=== PATIENT | female | born 1980 | race Caucasian/White ===

== ENCOUNTER → 2020-02-12 | Outpatient (CLI) ==
[~2020-02-12] MED LIST: AMIT10TA PO; AMIT50TA PO; LEVO-88 PO; MULTCAP PO; PROP20TA72 PO; SUMA25TA3 PO; bcp PO
== END ==
LOC: M LABSMTC 11:26 → EDUNIT# 11:35
PROVIDERS: ATTEND Anesthesiology
DX: Z20.828 Contact with and (suspected) exposure to other viral communicable diseases (principal)
CPT/HCPCS: C9803; U0003

== ENCOUNTER 2020-02-17 13:51 | Day surgery (SDC) | payer OTHER ==
[~2020-02-17] VITALS: Ht 167.6 cm; Wt 77.5 kg
[~2020-02-17 13:51] MED LIST changes: +LR 1,000 ML IV ONE
[2020-02-17] MEDS ORDERED: MIDAZOLAM INJ 2MG/2ML VIAL (J2250 PER 1MG) As Ordered ONE (18:24)
[2020-02-17] MEDS ORDERED: ONDANSETRON 4MG/2ML VIAL As Ordered ONE (18:24)
[2020-02-17] MEDS ORDERED: dexameTHASONE 4 MG/ML 1ML VIAL (J1100 PER 1MG) As Ordered ONE (18:24)
[2020-02-17] MEDS ORDERED: LIDOCAINE 2% 100MG/5ML SDV (FOR ANES.) As Ordered ONE (18:24)
[2020-02-17] MEDS ORDERED: fentaNYL 250 MCG/5 ML INJECTION (J3010) As Ordered ONE (18:24)
[2020-02-17] MEDS ORDERED: propofoL 200 MG/20 ML VIAL As Ordered ONE (18:24)
[2020-02-17] MEDS ORDERED: KETOROLAC 60MG 2ML VIAL As Ordered ONE (18:24)
[2020-02-17] MEDS ORDERED: ROCURONIUM BROMIDE 50 MG/5 ML VIAL As Ordered ONE (18:24)
[2020-02-17] MEDS ORDERED: PHENYLephrine HCL 500 MCG/5 ML (100MCG/ML) SYRINGE (J2370) As Ordered ONE (18:26)
[2020-02-17] MEDS ORDERED: SUGAMMADEX SODIUM 500 MG/5 ML VIAL (BRIDION) As Ordered ONE (18:27)
[2020-02-17] MEDS ORDERED: fentaNYL 100 MCG/2 ML INJECTION (J3010) IV PRN (19:30)
[2020-02-17] MEDS ORDERED: METOCLOPRAMIDE INJ 10MG/2ML VIAL (J2765 PER 1) IV PRN (19:30)
[2020-02-17] MEDS ORDERED: PERCOCET 5MG/325MG TAB PO PRN (19:30)
[2020-02-17] MEDS ORDERED: LR 1,000 ML IV SCH (19:30)
[2020-02-17] MEDS ORDERED: ONDANSETRON 4MG/2ML VIAL IV PRN (19:30)
[2020-02-17 21:00] VITALS: BP 116/75
--- NOTE | 2020-02-21 08:56 | RO ---
DATE OF OPERATION: 02/17/2020 PREOPERATIVE DIAGNOSIS/INDICATION FOR SURGERY: Pain and history of endometriosis. POSTOPERATIVE DIAGNOSIS: Pain and history of endometriosis. FINDINGS: Normal pelvis. She did appear to have I think they are called floating ribs but no significant abnormality. There was some scarring consistent with her previous history of treatment but no adhesions that would be appropriate to take down. SURGEON: Cassie Arteaga MD ANESTHESIA: General endotracheal anesthesia. PROCEDURE: Diagnostic laparoscopy. SPECIMEN: None. BRIEF DESCRIPTION OF PROCEDURE/FINDINGS: Agnes was brought to the operating room where sufficient general endotracheal anesthesia was induced. She was prepped, draped and positioned in the usual sterile fashion. She has a 6 cm uterus so fairly small uterus and the uterine manipulator was placed without difficulty and care taken to keep it short because it sounded so short and of course we emptied the bladder. We then turned our attention to the abdomen. Transverse semilunar incision was made below the umbilicus. Sharp and blunt dissection was continued through the subcutaneous tissues to the level of the rectus fascia which was grasped with Tan clamps, transversely incised and then the peritoneum entered under direct visualization and Vin cannula placed in open laparoscopic technique. It was secured in place with #0 Vicryl retention sutures and CO2 insufflation then begun. After adequate CO2 insufflation the peritoneal cavity was visualized. There were normal shiny surfaces throughout. There was a little bit of scarring consistent with possibly previous laser or other treatment to endometriosis consistent with her report but there were no erythematous lesions. There are a couple of splatters of blood that got into the folds but they wiped away. There were no powder burn lesions, there were no annular scars, the kind of annular scarring that you typically see with history of endometriosis. There was some scarring anterior to the uterus which sort of pulled the uterus forward. The cul-de-sac was clear. There were no endometriotic lesions over the uterosacrals. There were no endometriotic lesions over the ovaries or the ovarian fossa. The ovaries and tubes were clear with no adhesions. There were no adhesions to bowel. There did not appear to be any abnormal findings in the lower abdomen. There were no adhesions of the bowel in the pelvis or lower abdomen or in the upper abdomen. Pictures of the upper abdomen were taken and then laterally in the upper abdomen there appeared to be I think they are floating ribs. When you press down on the ribcage these projections come into the lateral aspect of the peritoneal cavity, they move with the ribcage but do not appear to be fixed on the lateral aspect and they have a texture from the manipulator of a rib and they are certainly projecting into the peritoneal cavity but they are extraperitoneal consistent with that. Although the one on the right side is a little more prominent there was the same kind of finding on the left side just a little less prominent so I do not think this is an abnormality per se, I think this is just the patients habitus. There are no adhesions within the abdomen to lyse or treat. There were no ovarian cysts or fallopian tube cysts and there was evidence of her previous treatment but no evidence of recurrent endometriosis. The procedure was ended without use of the laser which was available for the case but turns out not to have been needed. The procedure was ended. The CO2 was allowed to escape the abdomen. The fascial wound at the umbilicus was closed with #0 Vicryl retention sutures and skin was closed with 3-0 Vicryl in subcuticular stitch and uterine manipulator, etc were removed and dry, sterile dressing placed. Estimated blood loss for the procedure about 3 mL. Fluid replacement was Crystalloid. No complications. CONDITION AND DISPOSITION: Agnes tolerated the procedure well and was recovering in the recovery room in good condition. KANDY
== END 2020-02-17 21:00 | disposition home or self-care (01) ==
LOC: M SDC 13:51
PROVIDERS: ATTEND Obstetrics & Gynecology
DX: R10.2 Pelvic and perineal pain (principal); R10.31 Right lower quadrant pain; E03.9 Hypothyroidism, unspecified; K58.8 Other irritable bowel syndrome; K21.9 Gastro-esophageal reflux disease without esophagitis; G43.909 Migraine, unspecified, not intractable, without status migrainosus; F41.9 Anxiety disorder, unspecified; Z79.899 Other long term (current) drug therapy
CPT/HCPCS: 49320; 81025; J1100; J1885; J2250; J2370; J2405; J3010

== ENCOUNTER 2024-02-17 06:35 | Day surgery (SDC) | payer OTHER ==
[~2024-02-17] VITALS: Ht 167.6 cm; Wt 85.7 kg
[~2024-02-17 06:35] MED LIST changes: +AJOV225I SC; -AMIT10TA PO; +AMIT10TA7 PO; +ATOG60TA PO; +EMGA120I; +LEVO100T5 PO; -LR 1,000 ML IV ONE; +OFLOXACIN 0.3 % (OCUFLOX) OPTH SOL 5ML OS ONE; +OMEP-173 PO; +SUMA100T2 PO; +THERTAB52 PO; +TOPI25TA10 PO
[2024-02-17] MEDS: PHENYLEPHRINE 2.5% OPHTH SOL 2ML OS SCH (08:15)
[2024-02-17] MEDS: TROPICAMIDE 1% OPHTH SOLN 15ML OS SCH (08:15)
[2024-02-17] MEDS: PHENYLEPHRINE 10% OPHTH SOL 5ML OS PRN (08:15)
[2024-02-17] MEDS: ATROPINE SULFATE 1% OPHTH SOLN 2ML BTL OS SCH (08:15)
[2024-02-17] MEDS: LIDOCAINE 3.5 % 1ML OPHTH TOPICAL GEL OU ONE (08:16)
[2024-02-17] MEDS ORDERED: fentaNYL 100 MCG/2 ML INJECTION As Ordered ONE (09:04)
[2024-02-17] MEDS ORDERED: MIDAZOLAM INJ 2MG/2ML VIAL As Ordered ONE (09:05)
[2024-02-17] MEDS: BSS IRRIG/VANCO(10MG)/TOBRA(5MG)/EPINEPH(1:1000-0.5CC)500ML BAG-ORONLY As Ordered ONE (10:00)
[2024-02-17] MEDS: LIDOCAINE 1% SDV 5ML VIAL As Ordered ONE (10:02)
[2024-02-17] MEDS: CEFUROXIME 1MG/0.1ML INTRACAMERAL INJ As Ordered ONE (10:02)
[2024-02-17 10:15] VITALS: BP 117/75; TEMP 96.2; O2SAT 97
== END 2024-02-17 10:34 | disposition home or self-care (01) ==
LOC: M SDC 06:35
PROVIDERS: ATTEND Ophthalmology
DX: H25.9 Unspecified age-related cataract (principal); Z88.8 Allergy status to other drugs, medicaments and biological substances; Z79.899 Other long term (current) drug therapy; Z98.41 Cataract extraction status, right eye
CPT/HCPCS: 66984; J0697; J2250; J3010; V2632